=== PATIENT | female | born 1985 | race Two or more races ===

== ENCOUNTER 2017-05-07 13:26 | Emergency (ER) | payer OTHER ==
[~2017-05-07] VITALS: Ht 182.9 cm; Wt 113.4 kg
[2017-05-07 13:59] VITALS: BP 139/79
== END 2017-05-07 14:57 | disposition home or self-care (01) ==
LOC: ER 13:26
DX: L30.9 Dermatitis, unspecified (principal)

== ENCOUNTER 2017-06-02 12:56 | Emergency (ER) | payer MEDICAID ==
[~2017-06-02] VITALS: Ht 182.9 cm; Wt 113.4 kg
[2017-06-02 16:37] LABS: Urine Bacteria NONE SEEN /hpf (None Seen); Urine Blood Negative /uL (Negative); Urine Mucus FEW (None Seen); Urine Specific Gravity 1.019 (1.001-1.035); Urine WBC 5 /hpf (0 - 5)
[2017-06-02 17:00] VITALS: BP 129/71
== END 2017-06-02 18:04 | disposition home or self-care (01) ==
LOC: ER 12:56
DX: O26.892 Other specified pregnancy related conditions, second trimester (principal); K29.70 Gastritis, unspecified, without bleeding; Z3A.21 21 weeks gestation of pregnancy
CPT/HCPCS: 36415; 76805; 81001; 84702